=== PATIENT | female | born 1985 | race Caucasian/White ===

== ENCOUNTER 2017-07-15 16:34 | Emergency (ER) | payer OTHER ==
[2017-07-15 16:41] VITALS: BMI 30.7
[2017-07-15] MEDS ORDERED: KETOROLAC TROMETHAMINE 30 MG/1 ML VIAL IVPUSH ONE (16:59)
[2017-07-15] MEDS ORDERED: SODIUM CHLORIDE 1,000 ML IV STA ×2 (16:59→20:11)
--- NOTE | 2017-07-15 17:02 | PDOC ---
History of Present Illness - General Chief Complaint: Cold Symptoms Stated Complaint: FLU LIKE SYMPTOMS Time Seen by Provider: 07/15/17 16:49 History Source: Patient Exam Limitations: No Limitations - History of Present Illness Initial Comments: 07/15/17 17:00 CHIEF COMPLAINT: 4 days of fever, chills, headache, nausea and vomiting HISTORY OF PRESENT ILLNESS: 32-year-old female presents complaining of 4 days of headache, fever, and repeated episodes of vomiting. There is no hematemesis. She has diffuse body aches. She also feels pain in her ribs bilaterally and in all of her joints. She denies any rash. REVIEW OF SYSTEMS: Positive fever and chills Positive headache No earache, no nasal congestion, no sore throat Slight cough, nonproductive Positive bilateral lower rib pain Positive nausea and vomiting, no hematemesis, no bilious emesis No diarrhea No skin rash No dysuria or frequency Past History - Past Medical History Allergies/Adverse Reactions: Allergies Allergy/AdvReac Type Severity Reaction Status Date / Time No Known Allergies Allergy Verified 07/15/17 16:35 Home Medications: Ambulatory Orders Levofloxacin [Levaquin] 500 mg PO DAILY #7 tablet 07/15/17 Naproxen [Naprosyn -] 375 mg PO BID PRN #14 tablet 07/15/17 Oseltamivir Phosphate [Tamiflu] 75 mg PO BID #10 capsule 07/15/17 COPD: No - Suicide/Smoking/Psychosocial Hx Smoking History: Never smoked Information on smoking cessation initiated: No Hx Alcohol Use: No Drug/Substance Use Hx: No Substance Use Type: None *Physical Exam - Vital Signs Last Vital Signs Temp Pulse Resp BP Pulse Ox 102.7 F H 126 H 18 114/70 100 07/15/17 16:36 07/15/17 16:36 07/15/17 16:36 07/15/17 16:36 07/15/17 16:36 - Physical Exam Comments: 07/15/17 17:02 GENERAL: The patient is awake, alert, and fully oriented, in no acute distress. HEAD: Normal with no signs of trauma. EYES: Pupils equal, round and reactive to light, extraocular movements intact, sclera anicteric, conjunctiva clear. No photophobia. ENT: Ears normal, nares patent, oropharynx clear without exudates. Moist mucous membranes. NECK: Normal range of motion, supple without lymphadenopathy, JVD, or masses. No meningismus. LUNGS: Breath sounds equal, clear to auscultation bilaterally. No wheezes, and no crackles. HEART: Regular rate and rhythm, normal S1 and S2 without murmur, rub or gallop. ABDOMEN: Soft, nontender, normoactive bowel sounds. No guarding, no rebound. No masses. EXTREMITIES: Normal range of motion, no edema. No clubbing or cyanosis. No cords, erythema, or tenderness. NEUROLOGICAL: Cranial nerves II through XII grossly intact. Normal speech, normal gait. PSYCH: Normal mood, normal affect. SKIN: Warm, Dry, normal turgor, no rashes or lesions noted. ED Treatment Course - LABORATORY CBC & Chemistry Diagram: 07/15/17 17:30 07/15/17 17:30 Medical Decision Making - Medical Decision Making 07/15/17 20:06 32-year-old female presents with 4 days of fever, headache, body aches, and bilateral rib pain with coughing. On examination, her lungs are clear. She has diffuse body aches consistent with flulike illness. Laboratory studies reviewed: Her white blood cell count is elevated to 16.5. Hemoglobin is normal. Platelets are normal. She has increased bands. Potassium is 3.0 and sodium is 133. Her anion gap is 9, normal. No function is normal. Urinalysis has pyuria and 1+ leukocyte esterase. Chest x-ray shows increased interstitial markings bilaterally consistent with viral pneumonia. Patient given IV fluids. She will be started on Tamiflu and Levaquin for pneumonia and possible urinary tract infection. She is feeling much better prior to discharge. Laboratory Results - last 24 hr 07/15/17 07/15/17 07/15/17 17:30 17:30 17:30 WBC 16.5 H RBC 4.40 Hgb 13.0 Hct 38.2 MCV 86.8 MCH 29.5 MCHC 34.0 RDW 12.1 Plt Count 223 MPV 8.6 Neutrophils % No Result Required. Neutrophils % (Manual) 82.0 Band Neutrophils % 9.0 Lymphocytes % No Result Required. Lymphocytes % (Manual) 3.0 L Monocytes % (Manual) 6 Sodium 133 L Potassium 3.0 L Chloride 103 Carbon Dioxide 21 L Anion Gap 9 BUN 13 Creatinine < 0.8 Creat Clearance w eGFR > 60 Random Glucose 114 H Calcium 8.4 Total Bilirubin 0.5 AST 16 ALT 15 Alkaline Phosphatase 96 H Total Protein 6.9 Albumin 3.7 Urine Color Yellow Urine Appearance Hazy Urine pH 6.0 Ur Specific [place] 1.025 Urine Protein 3+ H Urine Glucose (UA) Negative Urine Ketones 2+ H Urine Blood 1+ H Urine Nitrite Negative Urine Bilirubin 1+ H Urine Urobilinogen >=8.0 e.u./dl H Ur Leukocyte Esterase 1+ H Urine RBC 4-6 Urine WBC 30-50 Ur Epithelial Cells 5-10 Urine HCG, Qual Negative *DC/Admit/Observation/Transfer Diagnosis at time of Disposition: Viral pneumonia - Discharge Dispostion Disposition: HOME Condition at time of disposition: Improved Admit: No - Prescriptions Prescriptions: Levofloxacin [Levaquin] 500 mg PO DAILY #7 tablet Naproxen [Naprosyn -] 375 mg PO BID PRN #14 tablet PRN Reason: pain and fever Oseltamivir Phosphate [Tamiflu] 75 mg PO BID #10 capsule - Referrals - Patient Instructions Printed Discharge Instructions: Atypical Pneumonia Additional Instructions: You were evaluated today for fever, cough, and flu symptoms. Your chest x-ray shows viral pneumonia. Rest at home. Take Naprosyn or Tylenol as needed for fever, chills and pain. Take Levaquin antibiotic for pneumonia. Take Tamiflu antibiotic for influenza. Follow-up with your primary care physician on Monday by telephone. Return to the emergency department immediately for any progression of symptoms such as shortness of breath, inability to take the antibiotics due to vomiting, or other serious symptoms. - Post Discharge Activity Forms/Work/School Notes: Back to Work
[2017-07-15] MEDS ORDERED: KETOROLAC TROMETHAMINE 30 MG/1 ML VIAL ONE (17:19)
[2017-07-15 17:47] LABS: HCG,QUALITATIVE URINE NEGATIVE; URINE BILIRUBIN 1+ (NEGATIVE); URINE BLOOD 1+ (NEGATIVE); URINE COLOR YELLOW; URINE GLUCOSE (UA) Negative (NEGATIVE); URINE KETONE 2+ (NEGATIVE); URINE LEUK ESTERASE 1+ (NEGATIVE); URINE NITRITE Negative (NEGATIVE); URINE PROTEIN 3+ (NEGATIVE); URINE UROBILINOGEN >=8.0 E.U./dl (0.2-1.0)
[2017-07-15 17:48] LABS: URINE APPEARANCE HAZY
[2017-07-15 17:52] LABS: HEMATOCRIT 38.2 % (32.4-45.2); MCH 29.5 pg (25.7-33.7); MEAN CELL VOLUME 86.8 fl (80-96); MEAN PLT VOLUME 8.6 fl (7.5-11.1); PLATELET COUNT 223 K/MM3 (134-434); RDW 12.1 % (11.6-15.6); WHITE BLOOD COUNT 16.5 K/mm3 (4.0-10.8)
[2017-07-15 18:03] LABS: ALBUMIN 3.7 g/dl (3.5-5.0); ALK PHOS 96 U/L (32-92); ANION GAP 9 (8-16); BILIRUBIN,TOTAL 0.5 mg/dl (0.2-1.0); BLOOD UREA NITROGEN 13 mg/dl (7-18); CALCIUM 8.4 mg/dl (8.4-10.2); CHLORIDE 103 mmol/L (98-107); CO2 21 mmol/L (22-28); GLUCOSE,RANDOM 114 mg/dl (74-106); SGOT/AST 16 U/L (10-42); SGPT/ALT 15 U/L (10-40); SODIUM 133 mmol/L (136-145); TOT PROT 6.9 g/dl (6.4-8.3)
[2017-07-15 18:12] LABS: URINE WBC 30-50 (0-5)
[2017-07-15 18:13] LABS: CREATININE < 0.8 mg/dl (0.6-1.3)
[2017-07-15 19:43] VITALS: BP 103/65; PULSE 90; TEMP 100
[2017-07-15] MEDS ORDERED: OSELTAMIVIR PHOSPHATE 75 MG CAPSULE PO ONE (19:52)
[2017-07-15] MEDS ORDERED: ONDANSETRON *ODT* 4 MG TABLET SL ONE (19:52)
[2017-07-15] MEDS ORDERED: OSELTAMIVIR PHOSPHATE 75 MG CAPSULE ONE (20:01)
[2017-07-15] MEDS ORDERED: ONDANSETRON *ODT* 4 MG TABLET ONE (20:02)
[2017-07-15] MEDS ORDERED: POTASSIUM CHLORIDE TABS 20 MEQ TABLET.ER (FP) PO ONE ×2 (20:10→20:13)
== END 2017-07-15 21:10 | disposition home or self-care (01) ==
LOC: FER 16:34 → EDSEX 16:34 → FER 21:10
DX: J12.9 Viral pneumonia, unspecified (principal)
CPT/HCPCS: 36415; 71046-TC-FY; 80053; 81003; 81015; 84703; 85025; 99282-25